=== PATIENT | female | born 1975 | race Caucasian/White ===

== ENCOUNTER → 2016-12-28 | Outpatient (CLI) | payer BC ==
--- NOTE | 2016-12-28 15:52 | RAD ---
Indication abdominal pain. The examination was targeted to the right upper quadrant. No similar imaging is available. The visualized pancreas appears normal. The inferior vena cava appeared normal. The gallbladder was slightly contracted but otherwise normal. The common bile duct diameter of approximately 4 mm is normal. No focal mass is seen in the visualized liver. The right kidney appeared unremarkable. IMPRESSION: Normal right upper quadrant abdominal ultrasound exam
== END | disposition home or self-care (01) ==
LOC: US 14:37
PROVIDERS: ATTEND Internal Medicine
DX: R10.11 Right upper quadrant pain (principal)
CPT/HCPCS: 76700